=== PATIENT | male | born 1965 | race Caucasian/White ===

== ENCOUNTER 2017-09-30 16:04 | Emergency (ER) | payer BC ==
[~2017-09-30] VITALS: Ht 165.1 cm; Wt 105.9 kg
[2017-09-30] MEDS ORDERED: KEFLEX500 MG PO (19:58)
[2017-09-30 20:40] VITALS: BP 134/81
== END 2017-09-30 20:41 | disposition home or self-care (01) ==
LOC: EME 16:04
PROC: 3E0234Z Introduction of Serum, Toxoid and Vaccine into Muscle, Percutaneous Approach (ICD-10-PCS; principal; 2017-09-30)
DX: S61.142A Puncture wound with foreign body of left thumb with damage to nail, initial encounter (principal); W45.0XXA Nail entering through skin, initial encounter; W29.4XXA Contact with nail gun, initial encounter; Z23 Encounter for immunization
CPT/HCPCS: 73130; 99281; 99283; S0020